=== PATIENT | male | born 1955 | race Caucasian/White ===

== ENCOUNTER 2016-11-13 12:51 | Emergency (ER) | payer OTHER ==
--- NOTE | ~2016-11-13 | CR4 ---
[facility] A Service of [facility] RADIOLOGY TEXT RESULTS PATIENT: OZIEL CARDONA LOCATION: SED : 53 UNIT #: [id number] AGE: [address]: Diego Shukla MD SEX: M ORDER DR: [id number] [place] [id number] MR#: [id number] [facility] #: [id number] NAME: OZIEL CARDONA. : 1955 SEX: M STUDY DATE/TIME: 11/13/2016 13:40 UNIT: SED ROOM: STUDY DESCRIPTION: CR Abdomen Flat Upright or Dec Attending Physician: Diego Shukla M.D. Referring Physician: Diego Shukla M.D. Ordering Physician: Physician Non-Staff Primary Care Physician: Abran Wellington M.D. MEDICAL IMAGING REPORT This report is preliminary unless electronic signature is present. EXAM Supine upright radiographs of the abdomen, 11/13/2016. HISTORY Constipated. Unable to urinate. Distension. Began last p.m., 10:00 p.m. TECHNIQUE AP radiograph of the chest presented with supine and upright radiographs of the abdomen as well as a pelvic radiograph. COMPARISON No comparisons. FINDINGS Heart and mediastinum within normal limits of size and contour. The lungs are well inflated with no evidence of acute pulmonary disease, pleural effusion, or pneumothorax. No suspicious nodule. Bowel gas pattern shows no small bowel colonic dilatation. There are some scattered air-fluid levels on the upright radiograph favored to be physiologic in nature. Physiologic stool burden in colon. No free air. Where visible, the solid organ contours are unremarkable. Patient's history includes inability to urinate. No findings to clearly indicate abnormal urinary bladder distension. Multilevel degenerative changes in the spine. Dextroscoliosis lumbar spine. Prior posterior orthopedic fusion L4-L5 with bilateral transpedicular screws and vertical fixation rods. Intervertebral disc spacer L4-L5. Mild degenerative changes in the hips. No acute-appearing bony abnormality. Dictated by... Julio Cesar Arnett M.D. [facility] A Service of [facility] RADIOLOGY TEXT RESULTS PATIENT: OZIEL CARDONA LOCATION: [facility] [place] : 53 UNIT #: [id number] AGE: [address]: Diego Shukla MD SEX: M ORDER DR: THIS IS AN ELECTRONICALLY VERIFIED REPORT Julio Cesar Arnett M.D. at 11/14/2016 7:16 PM TREVOR/demetrio TD: 11/13/2016 15:27 JOB #: [id number] MEDICAL IMAGING REPORT Page 1 of 1
[~2016-11-13 12:51] MED LIST: AMLODIPINE BESY10 MG PO; ATENOLOL PO; CITALOPRAM HBR40 MG PO; DOXYCYCLINE HY100 M1 PO; DYAZIDE 37.5/251 CAP PO; LEXAPRO PO; LORAZEPAM1 MG PO; LOTREL 5/20 MG1 CAP PO; PRAVASTATIN SOD40 MG PO; PRINIVIL40 MG PO; VIBRAMYCIN100 M1 PO; VOLTAREN50 MG PO; ZEGERID 20 MG C1 CAP PO
[2016-11-13] MEDS ORDERED: PREVACID PO (12:55)
[2016-11-13] MEDS ORDERED: LORCET PLUS 7.1 EACH PO (12:55)
[2016-11-13 14:16] LABS: URINE SOURCE CLEAN CATCH
[2016-11-13 14:18] LABS: URINE APPEARANCE CLEAR; URINE BILIRUBIN NEG (NEG); URINE BLOOD NEG (NEG); URINE COLOR YELLOW; URINE GLUCOSE NEG (NORM); URINE KETONE NEG (NEG); URINE LEUKOCYTE ESTERASE NEG (NEG); URINE NITRATE NEG (NEG); URINE PROTEIN NEG (NEG); URINE SPECIFIC GRAVITY 1.015 (1.003-1.035); URINE UROBILINOGEN 0.2 MG/DL (NORM)
[2016-11-13 14:21] LABS: MICRO INDICATED? NO
== END 2016-11-13 14:54 | disposition home or self-care (01) ==
LOC: SED 12:51
PROVIDERS: Emergency Medicine
DX: R33.9 Retention of urine, unspecified (principal); K59.00 Constipation, unspecified; I10 Essential (primary) hypertension; Z88.0 Allergy status to penicillin; Z79.899 Other long term (current) drug therapy
CPT/HCPCS: 51702; 74020; 81003; 99283